=== PATIENT | female | born 1990 | race Two or more races ===

== ENCOUNTER 2021-10-31 23:14 | Emergency (ER) | payer OTHER ==
[~2021-10-31] VITALS: Ht 154.9 cm; Wt 65.3 kg
[2021-10-31] MEDS ORDERED: SYNTHROID137 MCG PO (23:31)
[2021-11-01] MEDS ORDERED: VAZALORE81 MG PO (17:55)
[2021-11-01] MEDS ORDERED: PRENATAL TABLE1 EAC3 PO (17:55)
== END 2021-11-01 10:22 | disposition home or self-care (01) ==
LOC: ER 23:14
DX: O42.912 Preterm premature rupture of membranes, unspecified as to length of time between rupture and onset of labor, second trimester (principal); Z3A.18 18 weeks gestation of pregnancy

== ENCOUNTER 2021-11-01 16:23 | Inpatient (IN) | payer OTHER ==
[~2021-11-01] VITALS: Ht 154.9 cm; Wt 65.3 kg
[~2021-11-01 16:23] MED LIST: SYNTHROID137 MCG PO
[2021-11-01] MEDS ORDERED: VAZALORE81 MG PO (17:55)
[2021-11-01] MEDS ORDERED: PRENATAL TABLE1 EAC3 PO (17:55)
[2021-11-02] MEDS ORDERED: VITAMIN D3250 MCG (10:55)
== END 2021-11-13 17:48 | disposition home or self-care (01) | DRG 806 ==
LOC: OBS/DEL 16:23 → LDR 16:28 → OB/GYN 11-06 08:30
PROVIDERS: ADMIT Student in an Organized Health Care Education/Training Program; ATTEND Student in an Organized Health Care Education/Training Program
PROC: 4A1HXCZ Monitoring of Products of Conception, Cardiac Rate, External Approach (ICD-10-PCS; 2021-11-01)
PROC: 10E0XZZ Delivery of Products of Conception, External Approach (ICD-10-PCS; principal; 2021-11-03)
PROC: 30233N1 Transfusion of Nonautologous Red Blood Cells into Peripheral Vein, Percutaneous Approach (ICD-10-PCS; 2021-11-05)
PROC: BY4FZZZ Ultrasonography of Third Trimester, Single Fetus (ICD-10-PCS; 2021-11-13)
PROC: BU4CZZZ Ultrasonography of Uterus and Ovaries (ICD-10-PCS; 2021-11-13)
DX: O42.012 Preterm premature rupture of membranes, onset of labor within 24 hours of rupture, second trimester (principal); O26.872 Cervical shortening, second trimester; Z37.1 Single stillbirth; O31.12X1 Continuing pregnancy after spontaneous abortion of one fetus or more, second trimester, fetus 1; O99.012 Anemia complicating pregnancy, second trimester; D64.89 Other specified anemias; O26.842 Uterine size-date discrepancy, second trimester; O30.042 Twin pregnancy, dichorionic/diamniotic, second trimester; Z3A.18 18 weeks gestation of pregnancy

== ENCOUNTER 2021-11-16 00:47 | Inpatient (IN) | payer OTHER ==
[~2021-11-16] VITALS: Ht 154.9 cm; Wt 64.0 kg
[~2021-11-16 00:47] MED LIST changes: +PRENATAL TABLE1 EAC3 PO; +VAZALORE81 MG PO; +VITAMIN D3250 MCG
== END 2021-11-17 13:12 | disposition home or self-care (01) | DRG 806 ==
LOC: LDR 00:47 → OB/GYN 00:47
PROVIDERS: ADMIT Student in an Organized Health Care Education/Training Program; ATTEND Student in an Organized Health Care Education/Training Program
PROC: 10E0XZZ Delivery of Products of Conception, External Approach (ICD-10-PCS; principal; 2021-11-16)
PROC: 4A1HXCZ Monitoring of Products of Conception, Cardiac Rate, External Approach (ICD-10-PCS; 2021-11-16)
DX: O36.4XX0 Maternal care for intrauterine death, not applicable or unspecified (principal); O26.872 Cervical shortening, second trimester; Z37.1 Single stillbirth; O46.8X2 Other antepartum hemorrhage, second trimester; Z3A.20 20 weeks gestation of pregnancy; Z20.822 Contact with and (suspected) exposure to COVID-19

== ENCOUNTER 2021-12-18 14:04 | Outpatient (CLI) | payer OTHER | END 2021-12-18 15:15 | disposition home or self-care (01) | LOC: PRENATAL 14:04 | PROVIDERS: ATTEND Obstetrics & Gynecology Maternal & Fetal Medicine | DX: O35.9XX0 Maternal care for (suspected) fetal abnormality and damage, unspecified, not applicable or unspecified (principal); O35.3XX0 Maternal care for (suspected) damage to fetus from viral disease in mother, not applicable or unspecified; Z3A.25 25 weeks gestation of pregnancy ==

== ENCOUNTER 2022-09-11 10:04 | Day surgery (SDC) | payer OTHER ==
[~2022-09-11 10:04] MED LIST changes: +IRON236 MG PO
== END 2022-09-11 18:00 | disposition home or self-care (01) ==
LOC: CIR.AMB 10:04
PROVIDERS: ATTEND Obstetrics & Gynecology
DX: N84.0 Polyp of corpus uteri (principal); D18.09 Hemangioma of other sites; Z20.822 Contact with and (suspected) exposure to COVID-19

== ENCOUNTER 2023-11-24 12:13 | Inpatient (IN) | payer OTHER ==
[~2023-11-24] VITALS: Ht 157.5 cm; Wt 67.6 kg
[2023-11-24] MEDS ORDERED: MAGNESIUM SULFATE IN WATER 500 ML IV SCH (13:00)
[2023-11-24] MEDS ORDERED: RINGERS SOLUTION,LACTATED 1,000 ML IV SCH (13:00)
[2023-11-24 13:05] VITALS: BP 109/72
[2023-11-24] MEDS ORDERED: INDOMETHACIN 50 MG CAPSULE PO NR (14:00)
[2023-11-24] MEDS ORDERED: AMPICILLIN SODIUM 2,000 MG VIAL IV NR (14:00)
[2023-11-24] MEDS ORDERED: BETAMETHASONE ACETATE,SOD PHOS 30 MG/5 ML ML IM NR (14:00)
[2023-11-24 14:06] LABS: HEMATOCRIT 37.4 % (36.0-45.00); HEMOGLOBIN 12.6 g/dL (12.0-15.00); MEAN CELL VOLUME 81.6 fL (80.00-100.00); MEAN CORPUSCULAR HEMOGLOBIN 27.4 pg (27.00-32.0); MEAN CORPUSCULAR HGB CONC 33.6 g/dl (32.0-36.0); PLATELET COUNT 265 K/uL (150-450); RED BLOOD COUNT 4.58 M/uL (4.00-6.00); RED CELL DISTRIBUTION WIDTH 13.9 % (11.5-14.5)
[2023-11-24 14:10] LABS: PH,URINE 5.5 (5.0-8.0); URINE APPEARANCE Cloudy; URINE BILIRRUBIN Negative (NEGATIVE); URINE BLOOD Moderate; URINE COLOR Yellow; URINE KETONE Trace (NEGATIVE); URINE LEUKOCYTE Small; URINE NITRATE Negative; URINE PROTEIN Trace (NEGATIVE); URINE UROBILINOGEN 0.2 E.U./dl
[2023-11-24 14:11] LABS: URINE CAST 0.15 uL (0.0-1.40); URINE GLUCOSE >=1000 MG/DL (NEGATIVE); URINE RBC 32.9 uL (0.0-20.8); URINE WBC 69.1 uL (0.0-23.2)
[2023-11-24 14:31] LABS: INR 0.94; PROTHROMBIN TIME 10.3 SECONDS (9.0-11.5)
[2023-11-24 14:34] LABS: ALBUMIN 3.2 gm/dL (3.4-5.0); BILIRUBIN TOTAL 0.15 mg/dL (0.3-1.2); CREATININE SERUM 0.49 mg/dL (0.55-1.02); GFR 147.3; GLOBULINA 3.9 G/DL (2.4-3.5); POTASSIUM 4.04 mEq/L (3.5-5.1); TOTAL PROTEIN 7.1 gm/dL (6.4-8.2)
[2023-11-24] MEDS ORDERED: SYNTHROID150 MCG PO (14:46)
[2023-11-24] MEDS ORDERED: PRENATAL + DHA1 EAC1 PO (14:46)
[2023-11-24] MEDS ORDERED: DIALYVITE 800-1 EACH PO (14:47)
[2023-11-24 15:45] VITALS: BP 109/66
[2023-11-24] MEDS ORDERED: AMPICILLIN SODIUM 1,000 MG VIAL IV SCH (17:00)
[2023-11-24] MEDS ORDERED: METRONIDAZOLE/SODIUM CHLORIDE 500 MG/100 ML PIGGYBACK IV SCH (17:00)
[2023-11-24 19:13] VITALS: BP 107/64
[2023-11-24] MEDS ORDERED: INDOMETHACIN 25 MG CAPSULE PO SCH (20:00)
[2023-11-24 23:52] VITALS: BP 115/75
[2023-11-25 04:00] VITALS: BP 105/63
[2023-11-25] MEDS ORDERED: DIPHENHYDRAMINE HCL 50 MG/ML VIAL 1ML IV ONE (04:45)
[2023-11-25] MEDS ORDERED: LEVOTHYROXINE SODIUM 150 MCG TABLET PO SCH (06:00)
[2023-11-25] MEDS ORDERED: LEVOTHYROXINE SODIUM 137 MCG TABLET PO SCH (06:00)
[2023-11-25 06:24] VITALS: BP 102/63; O2SAT 98
[2023-11-25 11:21] VITALS: BP 103/63
[2023-11-25] MEDS ORDERED: CITRIC ACID/SODIUM CITRATE 30 ML BLIST.PACK PO NR (12:00)
[2023-11-25] MEDS ORDERED: BETAMETHASONE ACETATE,SOD PHOS 30 MG/5 ML ML IM SCH (14:00)
[2023-11-25 15:25] VITALS: BP 104/60
[2023-11-25 19:06] VITALS: BP 100/56
[2023-11-25 23:44] VITALS: BP 120/65
[2023-11-26 04:15] VITALS: BP 95/60
[2023-11-26 06:32] VITALS: BP 103/59; O2SAT 98
[2023-11-26 10:00] VITALS: BP 102/63
[2023-11-26] MEDS ORDERED: FAMOtidine 20 MG TABLET PO SCH (12:40)
[2023-11-27] VITALS: BP 95/55
[2023-11-27 08:51] VITALS: BP 104/66
[2023-11-27] MEDS ORDERED: DOCUSATE SODIUM 100MG CAP PO SCH (09:00)
[2023-11-27] MEDS ORDERED: LORATADINE 10 MG TABLET PO SCH (09:00)
[2023-11-27 16:54] VITALS: BP 102/62
[2023-11-28] VITALS: BP 96/55
[2023-11-28 08:02] VITALS: BP 93/62
[2023-11-28 18:16] VITALS: BP 111/69
[2023-11-29] VITALS: BP 106/62
[2023-11-29 07:46] VITALS: BP 110/64
[2023-11-29] MEDS ORDERED: ENOXAPARIN SODIUM 40 MG/0.4 ML SYRINGE SUBCUTANEO NR (12:00)
[2023-11-29] MEDS ORDERED: NIFEDIPINE 30 MG TAB.SA.OSM PO NR (12:00)
[2023-11-29] MEDS ORDERED: PNV,CALCIUM 72/IRON/FOLIC ACID 1 TAB TABLET PO NR (12:00)
[2023-11-29 14:37] VITALS: BP 96/61
[2023-11-29] MEDS ORDERED: NIFEDIPINE 30 MG TAB.SA.OSM PO SCH (21:00)
[2023-11-30 01:00] VITALS: BP 109/56
[2023-11-30] MEDS ORDERED: PNV,CALCIUM 72/IRON/FOLIC ACID 1 TAB TABLET PO SCH (09:00)
[2023-11-30] MEDS ORDERED: ENOXAPARIN SODIUM 40 MG/0.4 ML SYRINGE SUBCUTANEO SCH (09:00)
[2023-11-30] MEDS ORDERED: DOCUSATE SODIUM 100MG CAP PO NR (11:00)
[2023-11-30 11:26] VITALS: BP 102/69
[2023-11-30 15:15] VITALS: BP 104/61
[2023-11-30] MEDS ORDERED: DOCUSATE SODIUM 100MG CAP PO SCH (17:00)
[2023-12-01 01:00] VITALS: BP 92/59
[2023-12-01 09:18] VITALS: BP 101/65
[2023-12-01 17:46] VITALS: BP 100/66
[2023-12-02] VITALS: BP 127/83
[2023-12-02 08:00] VITALS: BP 100/66
[2023-12-02 19:36] VITALS: BP 100/66
[2023-12-03] VITALS: BP 96/60
[2023-12-03 08:00] VITALS: BP 118/72
[2023-12-03 18:11] VITALS: BP 108/68
[2023-12-04 02:27] VITALS: BP 93/56
[2023-12-04] MEDS ORDERED: TERBUTALINE SULFATE 1 MG/ML AMPUL SUBCUTANEO STA (08:03)
[2023-12-04 09:00] VITALS: BP 109/73
[2023-12-04] MEDS ORDERED: NIFEDIPINE 60 MG TAB.SA.OSM PO SCH (09:00)
[2023-12-04 16:00] VITALS: BP 107/72
[2023-12-04] MEDS ORDERED: DOCUSATE SODIUM 100MG CAP PO SCH (19:00)
[2023-12-05] VITALS: BP 94/54
[2023-12-05 08:57] VITALS: BP 109/67
[2023-12-05 17:36] VITALS: BP 102/67
[2023-12-05 23:54] VITALS: BP 100/67
[2023-12-06 09:18] VITALS: BP 108/71
[2023-12-06 16:00] VITALS: BP 110/70
[2023-12-07 00:22] VITALS: BP 106/65
[2023-12-07 08:07] VITALS: BP 103/68
[2023-12-07 15:58] VITALS: BP 103/71
[2023-12-07] MEDS ORDERED: METROnidazole 70 GM GEL.W.APPL VAG SCH (21:00)
[2023-12-07 23:32] VITALS: BP 102/67
[2023-12-08 08:12] VITALS: BP 101/66
[2023-12-08 16:00] VITALS: BP 105/67
[2023-12-08 23:44] VITALS: BP 90/58
[2023-12-09 08:06] VITALS: BP 103/70
[2023-12-09 15:56] VITALS: BP 103/69
[2023-12-10 01:25] VITALS: BP 99/63
[2023-12-10 10:12] VITALS: BP 101/69; O2SAT 98
[2023-12-10 16:16] VITALS: BP 104/69
[2023-12-11 01:14] VITALS: BP 92/56
[2023-12-11 08:00] VITALS: BP 99/67
[2023-12-11] MEDS ORDERED: DOCUSATE SODIUM 100MG CAP PO SCH (09:00)
[2023-12-11] MEDS ORDERED: POLYETHYLENE GLYCOL 3350 17 GM BLIST.PACK PO SCH (09:00)
[2023-12-11 16:00] VITALS: BP 99/67
[2023-12-12 01:53] VITALS: BP 100/56
[2023-12-12 16:21] VITALS: BP 99/63
[2023-12-13 00:40] VITALS: BP 98/61
[2023-12-13 08:00] VITALS: BP 97/65
[2023-12-13 14:54] VITALS: BP 98/64
[2023-12-14 00:11] VITALS: BP 93/58
[2023-12-14 08:00] VITALS: BP 100/65
[2023-12-14 15:02] VITALS: BP 93/56
[2023-12-14] MEDS ORDERED: TERCONAZOLE 20 GM TUBE VAG SCH (17:00)
[2023-12-14 20:00] VITALS: BP 106/71
[2023-12-15] VITALS: BP 95/61
[2023-12-15 08:26] VITALS: BP 105/71
[2023-12-15 16:29] VITALS: BP 98/67
[2023-12-16 00:37] VITALS: BP 98/59
[2023-12-16 08:15] VITALS: BP 94/62
[2023-12-16 16:15] VITALS: BP 99/64
[2023-12-17 00:41] VITALS: BP 101/67
[2023-12-17 08:40] VITALS: BP 100/65
[2023-12-17 16:00] VITALS: BP 107/68
[2023-12-17] MEDS ORDERED: DOCUSATE CALCIUM 240 MG CAPSULE PO SCH (17:00)
[2023-12-18 00:29] VITALS: BP 100/64
[2023-12-18 08:00] VITALS: BP 108/71
[2023-12-18 18:00] VITALS: BP 110/71
[2023-12-19 01:14] VITALS: BP 94/60
[2023-12-19 07:55] VITALS: BP 95/61
[2023-12-19] MEDS ORDERED: METROnidazole 500 MG TABLET PO SCH (09:00)
[2023-12-19] MEDS ORDERED: CLOTRIMAZOLE/BETAMETHASONE DIP 15 GM TUBE TOP SCH (09:00)
[2023-12-19 17:15] VITALS: BP 112/72
[2023-12-20] VITALS: BP 103/67
[2023-12-20 08:19] VITALS: BP 100/67
[2023-12-20 16:00] VITALS: BP 102/69
[2023-12-21 01:25] VITALS: BP 97/62
[2023-12-21 09:00] VITALS: BP 103/69
[2023-12-21 14:00] VITALS: BP 111/74
[2023-12-21 16:00] VITALS: BP 107/70
[2023-12-22 00:51] VITALS: BP 96/64
[2023-12-22 08:07] VITALS: BP 102/55
[2023-12-22] MEDS ORDERED: DOCUSATE SODIUM 100MG CAP PO SCH (09:00)
[2023-12-22 17:37] VITALS: BP 97/62
[2023-12-22] MEDS ORDERED: NIFEDIPINE 30 MG TAB.SA.OSM PO SCH (22:55)
[2023-12-23] VITALS: BP 104/70; BP 95/56
[2023-12-23 08:48] VITALS: BP 102/67
[2023-12-23 16:00] VITALS: BP 99/66
[2023-12-24 01:59] VITALS: BP 100/56
[2023-12-24 08:59] VITALS: BP 100/64
[2023-12-24 16:00] VITALS: BP 107/73
[2023-12-25 02:44] VITALS: BP 100/55
[2023-12-25 09:02] VITALS: BP 100/56
[2023-12-25 17:09] VITALS: BP 102/70
[2023-12-26 00:26] VITALS: BP 94/55
[2023-12-26] MEDS ORDERED: DIPHTH,PERTUSS(ACELL),TET VAC 0.5 ML VIAL IM NR (09:00)
[2023-12-26 10:45] VITALS: BP 117/64
[2023-12-26 16:00] VITALS: BP 95/60
[2023-12-27] VITALS: BP 95/60
[2023-12-27 08:17] VITALS: BP 95/60
[2023-12-27 15:49] VITALS: BP 100/65
[2023-12-27] MEDS ORDERED: NIFEDIPINE 60 MG TAB.SA.OSM PO SCH (21:00)
[2023-12-28] VITALS: BP 94/61
[2023-12-28 09:25] VITALS: BP 108/71
[2023-12-28 15:51] VITALS: BP 103/68
[2023-12-29 01:00] VITALS: BP 100/60
[2023-12-29 10:10] VITALS: BP 103/68
[2023-12-29 16:00] VITALS: BP 98/65
[2023-12-30] VITALS: BP 95/60
[2023-12-30 07:45] VITALS: BP 90/60
[2023-12-30 18:20] VITALS: BP 98/63
[2023-12-31 00:46] VITALS: BP 90/60
[2023-12-31 08:49] VITALS: BP 96/64
[2023-12-31 16:09] VITALS: BP 103/64
[2024-01-01 02:09] VITALS: BP 100/60
[2024-01-01 08:00] VITALS: BP 91/57
[2024-01-01 16:00] VITALS: BP 97/63
[2024-01-02 01:39] VITALS: BP 100/61
[2024-01-02 08:49] VITALS: BP 98/61
[2024-01-02] MEDS ORDERED: DOCUSATE SODIUM 100MG CAP PO SCH (09:00)
[2024-01-02 16:00] VITALS: BP 96/61
[2024-01-03 01:33] VITALS: BP 103/66
[2024-01-03 08:25] VITALS: BP 93/61
[2024-01-03 15:35] VITALS: BP 115/62
[2024-01-04 00:05] VITALS: BP 90/51
[2024-01-04 08:54] VITALS: BP 96/63
[2024-01-04 15:49] VITALS: BP 101/66
[2024-01-04 23:52] VITALS: BP 100/65
[2024-01-05 08:08] VITALS: BP 100/62
[2024-01-05 16:26] VITALS: BP 102/67
[2024-01-06] VITALS: BP 103/71
[2024-01-06 08:38] VITALS: BP 100/60
[2024-01-06 16:00] VITALS: BP 100/66
[2024-01-07] VITALS: BP 104/70
[2024-01-07 08:00] VITALS: BP 96/62
[2024-01-07 12:26] VITALS: BP 94/56
[2024-01-07 16:00] VITALS: BP 99/66
[2024-01-08] VITALS: BP 100/64
[2024-01-08 08:00] VITALS: BP 106/66
[2024-01-08 11:01] LABS: HEMATOCRIT 37.9 % (36.0-45.00); HEMOGLOBIN 12.8 g/dL (12.0-15.00); MEAN CORPUSCULAR HEMOGLOBIN 27.4 pg (27.00-32.0); MEAN CORPUSCULAR HGB CONC 33.9 g/dl (32.0-36.0); PLATELET COUNT 232 K/uL (150-450); RED BLOOD COUNT 4.68 M/uL (4.00-6.00)
[2024-01-08 11:28] LABS: INR 0.97; PARTIAL THROMBOPLASTIN TIME 25.2 SECONDS (22.0-34.0); PROTHROMBIN TIME 10.6 SECONDS (9.0-11.5)
[2024-01-08 12:04] LABS: BILIRUBIN TOTAL 0.24 mg/dL (0.3-1.2); CALCIUM 9.8 mg/dL (8.5-10.1); CREATININE SERUM 0.46 mg/dL (0.55-1.02); GFR 158.44; GLOBULINA 3.5 G/DL (2.4-3.5); POTASSIUM 3.7 mEq/L (3.5-5.1); TOTAL PROTEIN 6.5 gm/dL (6.4-8.2)
[2024-01-08 12:36] LABS: URINE APPEARANCE Clear; URINE BILIRRUBIN Negative (NEGATIVE); URINE BLOOD Small; URINE COLOR Yellow; URINE KETONE Negative (NEGATIVE); URINE LEUKOCYTE Moderate; URINE NITRATE Negative; URINE PROTEIN Trace (NEGATIVE)
[2024-01-08 12:41] LABS: URINE BACTERIA 2183.4 uL (0.0-1933); URINE EPITHELIAL CELLS 26.5 uL (0.0-38.8); URINE RBC 50.2 uL (0.0-20.8); URINE WBC 61.6 uL (0.0-23.2)
[2024-01-08 13:07] LABS: URINE CAST 0.15 uL (0.0-1.40); URINE GLUCOSE 100 MG/DL (NEGATIVE)
[2024-01-08 16:00] VITALS: BP 95/61
[2024-01-09 02:07] VITALS: BP 96/60
[2024-01-09 08:52] VITALS: BP 101/66
[2024-01-09 16:00] VITALS: BP 99/63
[2024-01-10 02:21] VITALS: BP 97/60
[2024-01-10 08:00] VITALS: BP 107/68
== END 2024-01-10 14:05 | disposition home or self-care (01) | DRG 831 ==
LOC: LDR 12:13 → OB/GYN 11-26 08:41
PROVIDERS: ADMIT Obstetrics & Gynecology Gynecology; ATTEND Obstetrics & Gynecology Gynecology
PROC: 4A1HXCZ Monitoring of Products of Conception, Cardiac Rate, External Approach (ICD-10-PCS; principal; 2023-11-24)
PROC: BY4CZZZ Ultrasonography of Second Trimester, Single Fetus (ICD-10-PCS; 2023-11-25)
PROC: BU4CZZZ Ultrasonography of Uterus and Ovaries (ICD-10-PCS; 2023-11-25)
PROC: BY4CZZZ Ultrasonography of Second Trimester, Single Fetus (ICD-10-PCS; 2023-12-02)
PROC: BU4CZZZ Ultrasonography of Uterus and Ovaries (ICD-10-PCS; 2023-12-02)
PROC: BY4CZZZ Ultrasonography of Second Trimester, Single Fetus (ICD-10-PCS; 2023-12-15)
PROC: BU4CZZZ Ultrasonography of Uterus and Ovaries (ICD-10-PCS; 2023-12-15)
PROC: BY4FZZZ Ultrasonography of Third Trimester, Single Fetus (ICD-10-PCS; 2023-12-29)
PROC: BU4CZZZ Ultrasonography of Uterus and Ovaries (ICD-10-PCS; 2023-12-29)
PROC: BY4FZZZ Ultrasonography of Third Trimester, Single Fetus (ICD-10-PCS; 2024-01-09)
PROC: BU4CZZZ Ultrasonography of Uterus and Ovaries (ICD-10-PCS; 2024-01-09)
DX: O34.32 Maternal care for cervical incompetence, second trimester (principal); O60.02 Preterm labor without delivery, second trimester; O60.03 Preterm labor without delivery, third trimester; O26.843 Uterine size-date discrepancy, third trimester; O26.842 Uterine size-date discrepancy, second trimester; O26.872 Cervical shortening, second trimester; O36.8120 Decreased fetal movements, second trimester, not applicable or unspecified; Z3A.24 24 weeks gestation of pregnancy; Z20.822 Contact with and (suspected) exposure to COVID-19; O36.8130 Decreased fetal movements, third trimester, not applicable or unspecified; Z3A.30 30 weeks gestation of pregnancy; O34.33 Maternal care for cervical incompetence, third trimester; O26.873 Cervical shortening, third trimester

== ENCOUNTER 2024-01-27 02:04 | Outpatient (CLI) | payer OTHER ==
[~2024-01-27] VITALS: Ht 157.5 cm; Wt 68.5 kg
[2024-01-27] VITALS (7 sets, daily range): BP systolic 93–105; BP diastolic 52–71; O2SAT 96–98
[~2024-01-27 02:04] MED LIST changes: +DIALYVITE 800-1 EACH PO; +LOVENOX40 MG/0.4 SUBCUTANEO; +NIFEDIPINE20 MG; +PEPCID AC20 MG; +PRENATAL + DHA1 EAC1 PO; +SYNTHROID150 MCG PO
[2024-01-27] MEDS ORDERED: ONDANSETRON HCL 2 MG/ML VIAL IV SCH (02:14)
[2024-01-27] MEDS ORDERED: RINGERS SOLUTION,LACTATED 1,000 ML IV SCH (02:15)
[2024-01-27 02:46] LABS: PH,URINE 5.5 (5.0-8.0); URINE APPEARANCE Turbid; URINE BILIRRUBIN Negative (NEGATIVE); URINE BLOOD Moderate; URINE COLOR Dark Yellow; URINE LEUKOCYTE Large; URINE NITRATE Negative
[2024-01-27] MEDS ORDERED: COLACE100 MG PO (02:48)
[2024-01-27 02:49] LABS: HEMOGLOBIN 14.7 g/dL (12.0-15.00); MEAN CELL VOLUME 79.6 fL (80.00-100.00); MEAN CORPUSCULAR HEMOGLOBIN 27.2 pg (27.00-32.0); MEAN CORPUSCULAR HGB CONC 34.2 g/dl (32.0-36.0); PLATELET COUNT 235 K/uL (150-450); RED BLOOD COUNT 5.41 M/uL (4.00-6.00); RED CELL DISTRIBUTION WIDTH 14.4 % (11.5-14.5); URINE BACTERIA 9602.3 uL (0.0-1933); URINE CAST 7.17 uL (0.0-1.40); URINE EPITHELIAL CELLS 120.7 uL (0.0-38.8); URINE RBC 18.4 uL (0.0-20.8)
[2024-01-27 03:01] LABS: INR 0.94; PROTHROMBIN TIME 10.3 SECONDS (9.0-11.5)
[2024-01-27 03:06] LABS: ALBUMIN 3.4 gm/dL (3.4-5.0); BILIRUBIN TOTAL 0.33 mg/dL (0.3-1.2); CALCIUM 9.7 mg/dL (8.5-10.1); CREATININE SERUM 0.56 mg/dL (0.55-1.02); GFR 126.26; GLOBULINA 4.2 G/DL (2.4-3.5); POTASSIUM 3.39 mEq/L (3.5-5.1); TOTAL PROTEIN 7.6 gm/dL (6.4-8.2)
[2024-01-27 03:17] LABS: URINE GLUCOSE 100 MG/DL (NEGATIVE); URINE KETONE >=160 (NEGATIVE); URINE PROTEIN 100 (NEGATIVE)
[2024-01-27 03:32] LABS: URINE MUCUS MODERATE
[2024-01-27] MEDS ORDERED: MAGNESIUM SULFATE IN WATER 100 ML IV ONE (07:30)
[2024-01-27] MEDS ORDERED: BETAMETHASONE ACETATE,SOD PHOS 30 MG/5 ML ML IM SCH (09:00)
[2024-01-27] MEDS ORDERED: MAGNESIUM SULFATE IN WATER 500 ML IV SCH (09:45)
[2024-01-28 01:00] VITALS: BP 103/69
[2024-01-28] MEDS ORDERED: LEVOTHYROXINE SODIUM 150 MCG TABLET PO SCH (06:00)
[2024-01-28 08:22] VITALS: BP 95/55
== END 2024-01-28 12:15 | disposition home or self-care (01) ==
LOC: LDR → OBS/DEL 02:04 → LDR 16:03 → OB/GYN 16:03 → OBS/DEL 01-28 12:15 → EDSTATUS 02-09 11:53
PROVIDERS: Obstetrics & Gynecology Maternal & Fetal Medicine; ATTEND Obstetrics & Gynecology
DX: O21.8 Other vomiting complicating pregnancy (principal); Z3A.33 33 weeks gestation of pregnancy; O26.893 Other specified pregnancy related conditions, third trimester

== ENCOUNTER → 2024-02-16 | Outpatient (CLI) | payer OTHER ==
[~2024-02-16] MED LIST changes: +COLACE100 MG PO
== END | disposition home or self-care (01) ==
LOC: NST 13:19
PROVIDERS: ATTEND Obstetrics & Gynecology Gynecology
DX: Z34.83 Encounter for supervision of other normal pregnancy, third trimester (principal)

== ENCOUNTER 2024-03-01 12:16 | Outpatient (CLI) | payer OTHER | END 2024-03-01 13:25 | disposition home or self-care (01) | LOC: NST 12:16 | PROVIDERS: ATTEND Obstetrics & Gynecology Maternal & Fetal Medicine | DX: Z34.83 Encounter for supervision of other normal pregnancy, third trimester (principal) ==

== ENCOUNTER 2024-03-03 08:26 | Inpatient (IN) | payer OTHER ==
[2024-03-03] VITALS (8 sets, daily range): BP systolic 90–137; BP diastolic 60–88
[~2024-03-03] VITALS: Ht 157.5 cm; Wt 71.7 kg
[~2024-03-03 08:26] MED LIST changes: +LEVOTHYROXINE SODIUM 150 MCG TABLET PO SCH
[2024-03-03] MEDS ORDERED: PRENATABS RX T1 EACH PO (09:26)
[2024-03-03] MEDS ORDERED: SYNTHROID150 MCG PO (09:26)
[2024-03-03] MEDS ORDERED: OXYTOCIN 500 ML IV SCH (09:30)
[2024-03-03] MEDS ORDERED: RINGERS SOLUTION,LACTATED 1,000 ML IV SCH (09:30)
[2024-03-03 09:39] LABS: HEMATOCRIT 36.2 % (36.0-45.00); HEMOGLOBIN 12.2 g/dL (12.0-15.00); MEAN CELL VOLUME 80.4 fL (80.00-100.00); MEAN CORPUSCULAR HEMOGLOBIN 27.1 pg (27.00-32.0); MEAN CORPUSCULAR HGB CONC 33.7 g/dl (32.0-36.0); PLATELET COUNT 200 K/uL (150-450); RED CELL DISTRIBUTION WIDTH 15.5 % (11.5-14.5)
[2024-03-03 10:00] LABS: INR < 0.93; PARTIAL THROMBOPLASTIN TIME 24.5 SECONDS (22.0-34.0); PROTHROMBIN TIME 10.2 SECONDS (9.0-11.5)
[2024-03-03 11:02] LABS: BILIRUBIN TOTAL 0.22 mg/dL (0.3-1.2); CALCIUM 9.2 mg/dL (8.5-10.1); CREATININE SERUM 0.55 mg/dL (0.55-1.02); GFR 128.92; GLOBULINA 3.4 G/DL (2.4-3.5); POTASSIUM 4.05 mEq/L (3.5-5.1); TOTAL PROTEIN 6.4 gm/dL (6.4-8.2); TSH 4.68 uIU/mL (0.358-3.74)
[2024-03-03] MEDS ORDERED: LIDOCAINE HCL 1% 10ML VIAL IJ ONE (13:15)
[2024-03-03] MEDS ORDERED: IBUprofen 400 MG TABLET PO PRN (13:15)
[2024-03-03] MEDS ORDERED: OXYTOCIN 1,000 ML IV SCH (13:15)
[2024-03-03] MEDS ORDERED: CHLORHEXIDINE GLUCONATE 120 ML BOTTLE TP SCH (13:15)
[2024-03-03] MEDS ORDERED: DOCUSATE SODIUM 100MG CAP PO SCH (17:00)
[2024-03-04 00:41] VITALS: BP 90/60
[2024-03-04 07:58] LABS: HEMATOCRIT 24.1 % (36.0-45.00); MEAN CELL VOLUME 80.9 fL (80.00-100.00); MEAN CORPUSCULAR HGB CONC 34.2 g/dl (32.0-36.0); PLATELET COUNT 163 K/uL (150-450); RED BLOOD COUNT 2.98 M/uL (4.00-6.00); RED CELL DISTRIBUTION WIDTH 15.3 % (11.5-14.5)
[2024-03-04 08:05] LABS: HEMOGLOBIN 8.2 g/dL (12.0-15.00); MEAN CORPUSCULAR HEMOGLOBIN 27.5 pg (27.00-32.0)
[2024-03-04] MEDS ORDERED: PNV,CALCIUM 72/IRON/FOLIC ACID 1 TAB TABLET PO SCH (09:00)
[2024-03-04] MEDS ORDERED: LEVOTHYROXINE SODIUM 150 MCG TABLET PO SCH (09:45)
[2024-03-04 11:04] VITALS: BP 107/73
[2024-03-04 16:07] VITALS: BP 105/71
[2024-03-05 08:00] VITALS: BP 106/70
[2024-03-05] MEDS ORDERED: BENZOCAINE/MENTHOL 90 ML BOTTLE TOP SCH (18:59)
[2024-03-06 02:37] VITALS: BP 100/60
[2024-03-06 08:44] VITALS: BP 101/69
[2024-03-06 15:39] VITALS: BP 105/68
== END 2024-03-06 19:05 | disposition home or self-care (01) | DRG 807 ==
LOC: LDR 08:26 → OB/GYN 14:00 → LDR 03-20 11:22
PROVIDERS: ADMIT Obstetrics & Gynecology Gynecology; ATTEND Obstetrics & Gynecology Gynecology
PROC: 10E0XZZ Delivery of Products of Conception, External Approach (ICD-10-PCS; principal; 2024-03-03)
PROC: 4A1HXCZ Monitoring of Products of Conception, Cardiac Rate, External Approach (ICD-10-PCS; 2024-03-03)
DX: O80 Encounter for full-term uncomplicated delivery (principal); Z37.0 Single live birth; Z3A.38 38 weeks gestation of pregnancy; Z20.822 Contact with and (suspected) exposure to COVID-19